=== PATIENT | female | born 1985 | race Caucasian/White ===

== ENCOUNTER 2022-02-20 10:28 | Day surgery (SDC) | payer OTHER ==
[~2022-02-20] VITALS: Ht 160 cm; Wt 94.3 kg
[2022-02-20] MEDS ORDERED: fentaNYL citrate 0.05 MG/ML VIAL ONE (11:21)
[2022-02-20] MEDS ORDERED: diphenhydrAMINE 50 MG/ML VIAL ONE (11:21)
[2022-02-20] MEDS ORDERED: MIDAZOLAM 2 MG/2 ML VIAL ONE (11:22)
[2022-02-20] MEDS ORDERED: MIDAZOLAM 2 MG/2 ML VIAL IV ONE (16:15)
[2022-02-20] MEDS ORDERED: fentaNYL citrate 0.05 MG/ML VIAL IVP ONE (16:25)
== END 2022-02-20 12:32 | disposition home or self-care (01) ==
LOC: MDS 10:28 → MMU 10:28 → MDS 12:32
PROVIDERS: ATTEND Internal Medicine Gastroenterology
DX: K21.9 Gastro-esophageal reflux disease without esophagitis (principal); Z98.84 Bariatric surgery status; Z88.0 Allergy status to penicillin; Z88.1 Allergy status to other antibiotic agents; Z20.822 Contact with and (suspected) exposure to COVID-19
CPT/HCPCS: 43235; 81025; 87426; J1200; J2250; J3010; J7030